=== PATIENT | female | born 1965 ===

== ENCOUNTER 2017-12-29 01:50 | Inpatient (IN) ==
[2017-12-29] MEDS ORDERED: PROMETHAZINE 25 MG/1 ML VIAL IM PRN (02:08)
[2017-12-29] MEDS ORDERED: ONDANSETRON 4 MG/2 ML VIAL IV PRN (02:08)
[2017-12-29] MEDS: MORPHINE 4 MG/1 ML VIAL IV PRN ×2 (04:03→23:00)
[2017-12-29] MEDS ORDERED: LORazepam 2 MG/1 ML VIAL IV ONE (04:03)
[2017-12-29] MEDS: SODIUM CHLORIDE 0.9% 1,000 ML IV SCH ×5 (04:05→18:50)
[2017-12-29 05:01] LABS: Basophils % 0.3 % (0.0-0.8); Eosinophils % 0.1 % (0.00-10.9); Hematocrit 37.3 VOL% (35.7-47.0); Hemoglobin 12.1 GM/DL (12.0-16.0); Immature Granulocytes % 0.4 %; Immature Granulocytes Absolute 0.04 #; Lymphocytes # 1.2 10*3/uL (1.4-4.0); Lymphocytes % 10.9 % (21.3-54.2); Mean Corpuscular HGB Conc 32.4 GM/DL (32-36); Mean Corpuscular Hemoglobin 30 PG (27-34); Mean Corpuscular Volume 92.8 FL (87-102); Mean Platelet Volume 10.3 FL (9.6-12.0); Monocytes # 0.6 10*3/uL (0.11-0.8); Monocytes % 5.8 % (1.7-12.7); Neutrophils # 8.8 10*3/uL (1.4-7.4); Neutrophils % 82.5 % (38.7-73.9); Platelet Count 140 T/CUMM (130-400); Red Blood Count 4.02 MC/CUMM (3.8-5.5); White Blood Count 10.7 T/CUMM (4-12)
[2017-12-29 05:36] LABS: CKMB % 7.1 %
[2017-12-29 05:39] LABS: Bilirubin,Total 0.6 MG/DL (0.2-1.0); Calcium 7.8 MG/DL (8.5-10.1); Osmolality,Calculated 283.1 MOS/KG (273-304); Potassium 4.2 MMOL/L (3.5-5.1); Total Protein 5.7 G/DL (6.4-8.3); Troponin I Only 0.739 NG/ML (0.00-0.045)
[2017-12-29 05:47] LABS: Partial Thromboplastin Time 31.1 SECS (0-40)
[2017-12-29 05:51] LABS: Risk Ratio 8.58; VLDL CHOLESTEROL 44.8 MG/DL
[2017-12-29 05:53] LABS: PT Patient Result 20.8 SECS
[2017-12-29 07:54] LABS: CKMB % 7.2 %
[2017-12-29 07:55] LABS: Troponin I Only 0.805 NG/ML (0.00-0.045)
[2017-12-29] MEDS: NICOTINE 21 MG/24 HR PATCH TRANSDERM SCH (09:02)
[2017-12-29] MEDS ORDERED: ALBUTEROL/IPRATROPIUM 3 ML NEB RESP TX PRN (09:42)
[2017-12-29 10:13] LABS: Hemoglobin 11.5 GM/DL (12.0-16.0)
[2017-12-29 10:43] LABS: CKMB % 6.7 %
[2017-12-29 10:51] LABS: Barbiturates Screen,Urine Negative (Negative); Benzodiazepines Screen,Urine Positive (Negative); Cannabinoid Screen,Urine Positive (Negative); Opiate Screen,Urine Positive (Negative); Phencyclidine Screen,Urine Negative (Negative)
[2017-12-29 10:51] LABS: Troponin I Only 0.711 NG/ML (0.00-0.045)
[2017-12-29 15:40] LABS: Hematocrit 35.8 VOL% (35.7-47.0); Hemoglobin 11.8 GM/DL (12.0-16.0)
[2017-12-29] MEDS ORDERED: ACETAMINOPHEN 325 MG TABLET PO PRN (18:23)
[2017-12-29 22:52] LABS: Hematocrit 32.5 VOL% (35.7-47.0)
[2017-12-29] MEDS: PANTOPRAZOLE 40 MG VIAL IV SCH (22:57)
[2017-12-30 05:18] LABS: Basophils % 0.1 % (0.0-0.8); Eosinophils # 0.1 10*3/uL (0.0-0.87); Eosinophils % 1.5 % (0.00-10.9); Hematocrit 34.3 VOL% (35.7-47.0); Hemoglobin 11.1 GM/DL (12.0-16.0); Immature Granulocytes % 0.3 %; Immature Granulocytes Absolute 0.02 #; Lymphocytes # 1.2 10*3/uL (1.4-4.0); Lymphocytes % 17.3 % (21.3-54.2); Mean Corpuscular HGB Conc 33.6 GM/DL (32-36); Mean Corpuscular Hemoglobin 30 PG (27-34); Mean Corpuscular Volume 90.4 FL (87-102); Mean Platelet Volume 10.7 FL (9.6-12.0); Monocytes # 0.5 10*3/uL (0.11-0.8); Monocytes % 6.7 % (1.7-12.7); Neutrophils % 74.1 % (38.7-73.9); Platelet Count 126 T/CUMM (130-400); Red Blood Count 3.65 MC/CUMM (3.8-5.5); Red Cell Distribution Width 13.1 % (9.3-17.3); White Blood Count 6.7 T/CUMM (4-12)
[2017-12-30 05:42] LABS: Calcium 7.9 MG/DL (8.5-10.1); INR 1.3; Osmolality,Calculated 282.8 MOS/KG (273-304); PT Patient Result 13.4 SECS; Potassium 4.1 MMOL/L (3.5-5.1)
[2017-12-30] MEDS: SODIUM CHLORIDE 0.9% 1,000 ML IV SCH ×2 (05:56→09:01)
[2017-12-30] MEDS: PANTOPRAZOLE 40 MG VIAL IV SCH (08:38)
[2017-12-30] MEDS: NICOTINE 21 MG/24 HR PATCH TRANSDERM SCH (08:39)
[2017-12-30] MEDS ORDERED: predniSONE 20 MG TABLET PO SCH (09:30)
[2017-12-30] MEDS ORDERED: LEVOFLOXACIN 500 MG TABLET PO SCH (09:30)
[2017-12-30] MEDS ORDERED: WARFARIN 5 MG TABLET PO ONE (09:32)
[2017-12-30] MEDS ORDERED: ENOXAPARIN 40 MG/0.4 ML SYRINGE SUBCUT ONE (09:32)
[2017-12-30] MEDS ORDERED: MAGNESIUM SULF RIDER 2 GM in PREMIX 1 EACH IV ONE (10:08)
[2017-12-30 10:26] LABS: Hematocrit 33.4 VOL% (35.7-47.0); Hemoglobin 10.9 GM/DL (12.0-16.0)
[2017-12-30] MEDS ORDERED: MAGNESIUM SULFATE 1 GM/2 ML VIAL IM ONE (11:00)
[2017-12-30 13:41] VITALS: BP 117/73
== END 2017-12-30 13:33 | disposition left against medical advice (07) | DRG 377 ==
LOC: N.CC 03:42 → SUATTDRO 03:42
PROVIDERS: ADMIT Internal Medicine; ATTEND Internal Medicine